=== PATIENT | female | born 1950 | race Caucasian/White ===

== ENCOUNTER 2018-01-01 11:22 | Inpatient (IN) | payer OTHER, MEDICAID ==
[~2018-01-01] VITALS: Ht 157.5 cm; Wt 93.9 kg
[2018-01-01] MEDS ORDERED: GABA-533 PO (11:48)
[2018-01-01] MEDS ORDERED: CLON-570 PO (11:48)
[2018-01-01] MEDS ORDERED: LAMO25 PO (11:48)
[2018-01-01] MEDS ORDERED: OMEP20 PO (11:48)
[2018-01-01] MEDS ORDERED: LORA10TA7 PO (11:48)
[2018-01-01] MEDS ORDERED: HYD50 PO (11:48)
[2018-01-01] MEDS ORDERED: FLUO-191 PO (11:48)
[2018-01-01] MEDS ORDERED: ATOR40TA28 PO (11:51)
[2018-01-01] MEDS ORDERED: LORA1TAB3 PO (11:51)
[2018-01-01] MEDS ORDERED: HYDR-308 PO (11:51)
[2018-01-01 12:17] LABS: BASOPHILS % (AUTO) 0.9 % (0.0-2.0); EOSINOPHILS % (AUTO) 3.1 % (1.0-6.0); HEMATOCRIT 41.3 % (36-46); HEMOGLOBIN 14.1 g/dL (12.0-16.0); LYMPHOCYTES % (AUTO) 27.7 % (22.0-44.0); MEAN CORPUSCULAR HEMOGLOBIN 28.8 pg (26.0-34.0); MEAN CORPUSCULAR HGB CONC 34.2 G/dL (31.0-37.0); MEAN CORPUSCULAR VOLUME 84 fL (80-100); MONOCYTES # (AUTO) 0.7 K/uL (0.1-1.0); MONOCYTES % (AUTO) 9.4 % (2.0-9.0); NEUTROPHILS # (AUTO) 4.3 K/uL (1.8-7.7); NEUTROPHILS % (AUTO) 58.9 % (40.0-70.0); PLATELET COUNT (AUTO) 265 K/uL (150-450); RED CELL DISTRIBUTION WIDTH 14.6 % (11.5-14.5)
[2018-01-01 12:25] LABS: ANION GAP 2 mmol/L (8-16); CALCIUM, TOTAL 8.3 mg/dL (8.8-10.5); CARBON DIOXIDE 30 mmol/L (22-29); CHLORIDE 105 mmol/L (98-107); CREATININE 0.81 mg/dL (0.60-1.30); GLOMERULAR FILTR. RATE CALC > 60 mL/min (>60); GLUCOSE,RANDOM 89 mg/dL (70-110); POTASSIUM 4.2 mmol/L (3.5-5.1); SODIUM SERUM 137 mmol/L (136-145); UREA NITROGEN, BLOOD 14 mg/dL (7-18)
[2018-01-01 12:30] LABS: ALANINE AMINOTRANSFERASE 16 U/L (12-78); ALKALINE PHOSPHATASE 104 U/L (46-116); ASPARTATE AMINOTRANSFERASE 14 U/L (15-37); BILIRUBIN,TOTAL 0.3 mg/dL (0.1-1.0); TOTAL PROTEIN, SERUM 6.9 g/dL (6.4-8.2)
[2018-01-01 12:50] LABS: APPEARANCE,URINE CLEAR (CLEAR); BILIRUBIN,URINE NEGATIVE (NEGATIVE); GLUCOSE, URINE (UA) NEGATIVE (NEGATIVE); KETONES,URINE NEGATIVE (NEGATIVE); LEUKOCYTE ESTERASE ,URINE NEGATIVE (NEGATIVE); NITRATE,URINE NEGATIVE (NEGATIVE); OCCULT BLOOD,URINE NEGATIVE (NEGATIVE); PH,URINE 6.5 (5.0-8.0); PROTEIN,URINE NEGATIVE (NEGATIVE); UROBILINOGEN,URINE 0.2 mg/dL (<=1.0)
[2018-01-01 13:04] LABS: AMPHET/METH SCREEN,URINE NEGATIVE (NEGATIVE); BARBITURATE SCREEN, URINE NEGATIVE (NEGATIVE); BENZODIAZEPINES SCREEN,URINE NEGATIVE (NEGATIVE); CANNABINOID SCREEN,URINE NEGATIVE (NEGATIVE); COCAINE SCREEN,URINE NEGATIVE (NEGATIVE); METHADONE SCREEN, URINE NEGATIVE (NEGATIVE); OPIATE SCREEN,URINE NEGATIVE (NEGATIVE); PHENCYCLIDINE SCREEN,URINE NEGATIVE (NEGATIVE)
[2018-01-01] MEDS ORDERED: LORazepam 2 MG TABLET PO ONE (13:30)
[2018-01-01] MEDS ORDERED: HALOPERIDOL 5 MG TABLET PO ONE (13:30)
[2018-01-01] MEDS ORDERED: HALOPERIDOL 5 MG TABLET PO PRN (15:15)
[2018-01-01] MEDS ORDERED: LORazepam 2 MG TABLET PO PRN (15:15)
[2018-01-01] MEDS ORDERED: ZOLPIDEM TARTRATE 10 MG TABLET PO PRN (15:15)
[2018-01-01 16:05] LABS: CHOL/HDL RATIO 4.2 (3.9-5.7); CHOLESTEROL 194 mg/dL (131-200); HDL CHOLESTEROL 46 mg/dL (40-60); LDL CHOL (CALC.) 116 mg/dL (0-130); TRIGLYCERIDES 160 mg/dL (15-150)
[2018-01-01 17:13] VITALS: BP 124/87
[2018-01-01] MEDS ORDERED: PNEUMOCOCCAL VACCINE POLYVALENT 0.5 ML VIAL [PPSV23] IM ONE (17:45)
[2018-01-02 06:26] VITALS: BP 100/75
[2018-01-02 08:42] VITALS: BP 129/75
[2018-01-02] MEDS: OMEPRAZOLE 20 MG CAPSULE PO SCH (09:09)
[2018-01-02] MEDS: ATORVASTATIN CALCIUM 40 MG TABLET PO SCH (09:09)
[2018-01-02] MEDS: GABAPENTIN 400 MG CAPSULE PO SCH ×2 (10:55→16:06)
[2018-01-02] MEDS: LamoTRIgine 25 MG TABLET PO SCH (10:55)
[2018-01-02] MEDS: FLUoxetine HCL 20 MG CAPSULE PO SCH (10:55)
[2018-01-02] MEDS ORDERED: HALOPERIDOL 5 MG TABLET PO PRN (11:15)
[2018-01-02] MEDS ORDERED: IBUPROFEN 400 MG TABLET PO PRN (13:45)
[2018-01-02] MEDS: LORazepam 2 MG TABLET PO PRN (16:06)
[2018-01-02 16:29] VITALS: BP 117/69
[2018-01-02] MEDS ORDERED: CloNIDine HCL 0.1 MG TABLET PO SCH (17:00)
[2018-01-02] MEDS: RisperiDONE 1 MG TABLET PO SCH (20:17)
[2018-01-03] MEDS: LORazepam 2 MG TABLET PO PRN (00:36)
[2018-01-03] MEDS: ZOLPIDEM TARTRATE 10 MG TABLET PO PRN ×2 (00:36→23:43)
[2018-01-03 05:18] VITALS: BP 112/71
[2018-01-03 08:00] VITALS: BP 108/69
[2018-01-03 08:10] LABS: EOSINOPHILS % (AUTO) 3.9 % (1.0-6.0); HEMATOCRIT 40.6 % (36-46); HEMOGLOBIN 13.9 g/dL (12.0-16.0); LYMPHOCYTES % (AUTO) 32.6 % (22.0-44.0); MEAN CORPUSCULAR HEMOGLOBIN 28.9 pg (26.0-34.0); MEAN CORPUSCULAR HGB CONC 34.2 G/dL (31.0-37.0); MEAN CORPUSCULAR VOLUME 85 fL (80-100); MONOCYTES # (AUTO) 0.6 K/uL (0.1-1.0); MONOCYTES % (AUTO) 8.8 % (2.0-9.0); NEUTROPHILS # (AUTO) 3.4 K/uL (1.8-7.7); NEUTROPHILS % (AUTO) 53.7 % (40.0-70.0); PLATELET COUNT (AUTO) 245 K/uL (150-450); RED CELL DISTRIBUTION WIDTH 14.6 % (11.5-14.5)
[2018-01-03 08:24] LABS: ALANINE AMINOTRANSFERASE 15 U/L (12-78); ALBUMIN 2.7 g/dL (3.4-5.0); ALKALINE PHOSPHATASE 96 U/L (46-116); ANION GAP 7 mmol/L (8-16); ASPARTATE AMINOTRANSFERASE 14 U/L (15-37); BILIRUBIN,TOTAL 0.3 mg/dL (0.1-1.0); CALCIUM, TOTAL 8.2 mg/dL (8.8-10.5); CARBON DIOXIDE 27 mmol/L (22-29); CHLORIDE 105 mmol/L (98-107); CREATININE 0.85 mg/dL (0.60-1.30); GLOMERULAR FILTR. RATE CALC > 60 mL/min (>60); GLUCOSE,RANDOM 82 mg/dL (70-110); POTASSIUM 4.2 mmol/L (3.5-5.1); SODIUM SERUM 139 mmol/L (136-145); TOTAL PROTEIN, SERUM 6.4 g/dL (6.4-8.2); UREA NITROGEN, BLOOD 15 mg/dL (7-18)
[2018-01-03] MEDS: GABAPENTIN 400 MG CAPSULE PO SCH ×2 (08:43→16:39)
[2018-01-03] MEDS: ATORVASTATIN CALCIUM 40 MG TABLET PO SCH (08:43)
[2018-01-03] MEDS: LORATADINE 10 MG TABLET PO SCH (08:43)
[2018-01-03] MEDS: FLUoxetine HCL 20 MG CAPSULE PO SCH (08:43)
[2018-01-03] MEDS: LamoTRIgine 25 MG TABLET PO SCH (08:43)
[2018-01-03] MEDS: OMEPRAZOLE 20 MG CAPSULE PO SCH ×2 (08:43→09:00)
[2018-01-03] MEDS ORDERED: ATORVASTATIN CALCIUM 40 MG TABLET PO SCH (09:00)
[2018-01-03] MEDS: LORazepam 1 MG TABLET PO PRN ×2 (16:24→23:43)
[2018-01-03 16:30] VITALS: BP 123/80
[2018-01-03] MEDS: RisperiDONE 1 MG TABLET PO SCH (20:37)
[2018-01-04] VITALS: BP 107/77
[2018-01-04] MEDS: FLUoxetine HCL 20 MG CAPSULE PO SCH (08:24)
[2018-01-04] MEDS: ATORVASTATIN CALCIUM 40 MG TABLET PO SCH (08:24)
[2018-01-04] MEDS: OMEPRAZOLE 20 MG CAPSULE PO SCH (08:24)
[2018-01-04] MEDS: LORATADINE 10 MG TABLET PO SCH (08:24)
[2018-01-04] MEDS: GABAPENTIN 400 MG CAPSULE PO SCH ×2 (08:24→16:37)
[2018-01-04] MEDS: LamoTRIgine 25 MG TABLET PO SCH (08:24)
[2018-01-04 08:30] VITALS: BP 121/83
[2018-01-04] MEDS: LORazepam 1 MG TABLET PO PRN (16:08)
[2018-01-04 16:12] VITALS: BP 122/71
[2018-01-04] MEDS: RisperiDONE 1 MG TABLET PO SCH (20:33)
[2018-01-04] MEDS: ZOLPIDEM TARTRATE 10 MG TABLET PO PRN (21:32)
[2018-01-05 01:09] VITALS: BP 118/75
[2018-01-05] MEDS: LORazepam 1 MG TABLET PO PRN ×2 (01:14→16:20)
[2018-01-05 08:05] VITALS: BP 105/74
[2018-01-05] MEDS: FLUoxetine HCL 20 MG CAPSULE PO SCH (08:23)
[2018-01-05] MEDS: ATORVASTATIN CALCIUM 40 MG TABLET PO SCH (08:23)
[2018-01-05] MEDS: LamoTRIgine 25 MG TABLET PO SCH (08:24)
[2018-01-05] MEDS: GABAPENTIN 400 MG CAPSULE PO SCH ×2 (08:24→16:37)
[2018-01-05] MEDS: LORATADINE 10 MG TABLET PO SCH (08:24)
[2018-01-05] MEDS: OMEPRAZOLE 20 MG CAPSULE PO SCH (08:24)
[2018-01-05 16:20] VITALS: BP 133/81
[2018-01-05] MEDS: RisperiDONE 1 MG TABLET PO SCH (20:34)
[2018-01-05] MEDS: ZOLPIDEM TARTRATE 5 MG TABLET PO PRN (20:54)
[2018-01-06 04:00] VITALS: BP 114/61
[2018-01-06] MEDS: GABAPENTIN 400 MG CAPSULE PO SCH ×2 (08:17→16:35)
[2018-01-06] MEDS: LamoTRIgine 25 MG TABLET PO SCH (08:17)
[2018-01-06] MEDS: ATORVASTATIN CALCIUM 40 MG TABLET PO SCH (08:17)
[2018-01-06] MEDS: LORATADINE 10 MG TABLET PO SCH (08:17)
[2018-01-06] MEDS: FLUoxetine HCL 20 MG CAPSULE PO SCH (08:17)
[2018-01-06] MEDS: OMEPRAZOLE 20 MG CAPSULE PO SCH (08:17)
[2018-01-06 08:37] VITALS: BP 106/68
[2018-01-06] MEDS ORDERED: FLUoxetine HCL 20 MG CAPSULE PO ONE (12:30)
[2018-01-06 16:15] VITALS: BP 123/72
[2018-01-06] MEDS: LORazepam 1 MG TABLET PO PRN (16:20)
[2018-01-06] MEDS: RisperiDONE 1 MG TABLET PO SCH (20:35)
[2018-01-06] MEDS: ZOLPIDEM TARTRATE 5 MG TABLET PO PRN (21:10)
[2018-01-07 07:20] VITALS: BP 112/70
[2018-01-07] MEDS: ATORVASTATIN CALCIUM 40 MG TABLET PO SCH (08:14)
[2018-01-07] MEDS: FLUoxetine HCL 20 MG CAPSULE PO SCH (08:14)
[2018-01-07] MEDS: GABAPENTIN 400 MG CAPSULE PO SCH ×2 (08:14→16:21)
[2018-01-07] MEDS: OMEPRAZOLE 20 MG CAPSULE PO SCH (08:14)
[2018-01-07] MEDS: LamoTRIgine 25 MG TABLET PO SCH (08:14)
[2018-01-07] MEDS: LORATADINE 10 MG TABLET PO SCH (08:14)
[2018-01-07 08:35] VITALS: BP 104/72
[2018-01-07 16:12] VITALS: BP 118/77
[2018-01-07] MEDS: LORazepam 1 MG TABLET PO PRN (16:21)
[2018-01-07] MEDS: RisperiDONE 1 MG TABLET PO SCH (20:10)
[2018-01-07] MEDS: NYSTATIN 15 GM POWDER BOTTLE TP SCH (21:19)
[2018-01-07] MEDS: ZOLPIDEM TARTRATE 5 MG TABLET PO PRN (21:19)
[2018-01-08 06:10] VITALS: BP 116/80
[2018-01-08] MEDS: OMEPRAZOLE 20 MG CAPSULE PO SCH (08:24)
[2018-01-08] MEDS: LORATADINE 10 MG TABLET PO SCH (08:24)
[2018-01-08] MEDS: LamoTRIgine 25 MG TABLET PO SCH (08:24)
[2018-01-08] MEDS: GABAPENTIN 400 MG CAPSULE PO SCH ×2 (08:24→16:33)
[2018-01-08] MEDS: FLUoxetine HCL 20 MG CAPSULE PO SCH (08:24)
[2018-01-08] MEDS: ATORVASTATIN CALCIUM 40 MG TABLET PO SCH (08:24)
[2018-01-08] MEDS: NYSTATIN 15 GM POWDER BOTTLE TP SCH ×2 (08:25→16:33)
[2018-01-08 08:30] VITALS: BP 103/66
[2018-01-08 16:09] VITALS: BP 111/65
[2018-01-08] MEDS: LORazepam 1 MG TABLET PO PRN ×2 (16:46→23:38)
[2018-01-08] MEDS: RisperiDONE 1 MG TABLET PO SCH (20:28)
[2018-01-08 23:35] VITALS: BP 131/74
[2018-01-08] MEDS: ZOLPIDEM TARTRATE 5 MG TABLET PO PRN (23:38)
[2018-01-09] MEDS: ATORVASTATIN CALCIUM 40 MG TABLET PO SCH (08:11)
[2018-01-09] MEDS: GABAPENTIN 400 MG CAPSULE PO SCH ×2 (08:11→16:40)
[2018-01-09] MEDS: LamoTRIgine 25 MG TABLET PO SCH (08:11)
[2018-01-09] MEDS: LORATADINE 10 MG TABLET PO SCH (08:11)
[2018-01-09] MEDS: OMEPRAZOLE 20 MG CAPSULE PO SCH (08:11)
[2018-01-09] MEDS: FLUoxetine HCL 20 MG CAPSULE PO SCH (08:11)
[2018-01-09] MEDS: NYSTATIN 15 GM POWDER BOTTLE TP SCH ×2 (08:12→16:41)
[2018-01-09 08:24] VITALS: BP 115/75
[2018-01-09] MEDS ORDERED: MAGNESIUM HYDROXIDE SUSPENSION 30 ML UDCUP PO PRN (11:15)
[2018-01-09 16:12] VITALS: BP 110/69
[2018-01-09] MEDS: LORazepam 1 MG TABLET PO PRN (16:18)
[2018-01-09] MEDS: RisperiDONE 1 MG TABLET PO SCH (20:34)
[2018-01-09] MEDS: ZOLPIDEM TARTRATE 5 MG TABLET PO PRN (21:18)
[2018-01-10 06:31] VITALS: BP 103/61
[2018-01-10] MEDS: OMEPRAZOLE 20 MG CAPSULE PO SCH (08:14)
[2018-01-10] MEDS: ATORVASTATIN CALCIUM 40 MG TABLET PO SCH (08:14)
[2018-01-10] MEDS: GABAPENTIN 400 MG CAPSULE PO SCH ×2 (08:14→16:39)
[2018-01-10] MEDS: FLUoxetine HCL 20 MG CAPSULE PO SCH (08:14)
[2018-01-10] MEDS: LORATADINE 10 MG TABLET PO SCH (08:14)
[2018-01-10] MEDS: LamoTRIgine 25 MG TABLET PO SCH (08:15)
[2018-01-10] MEDS: NYSTATIN 15 GM POWDER BOTTLE TP SCH ×2 (08:19→16:40)
[2018-01-10 08:31] VITALS: BP 121/78
[2018-01-10 16:06] VITALS: BP 114/85
[2018-01-10] MEDS: LORazepam 1 MG TABLET PO PRN (17:05)
[2018-01-10] MEDS: RisperiDONE 1 MG TABLET PO SCH (20:41)
[2018-01-10] MEDS: ZOLPIDEM TARTRATE 5 MG TABLET PO PRN (21:18)
[2018-01-11 00:10] VITALS: BP 138/81
[2018-01-11] MEDS: LamoTRIgine 25 MG TABLET PO SCH (08:19)
[2018-01-11] MEDS: FLUoxetine HCL 20 MG CAPSULE PO SCH (08:19)
[2018-01-11] MEDS: LORATADINE 10 MG TABLET PO SCH (08:19)
[2018-01-11] MEDS: ATORVASTATIN CALCIUM 40 MG TABLET PO SCH (08:19)
[2018-01-11] MEDS: OMEPRAZOLE 20 MG CAPSULE PO SCH (08:19)
[2018-01-11] MEDS: GABAPENTIN 400 MG CAPSULE PO SCH ×2 (08:19→16:41)
[2018-01-11] MEDS: NYSTATIN 15 GM POWDER BOTTLE TP SCH ×2 (08:20→16:41)
[2018-01-11 08:35] VITALS: BP 122/70
[2018-01-11] MEDS: LORazepam 1 MG TABLET PO PRN ×2 (12:03→19:56)
[2018-01-11 16:07] VITALS: BP 122/78
[2018-01-11] MEDS: RisperiDONE 1 MG TABLET PO SCH (20:37)
[2018-01-11] MEDS: ZOLPIDEM TARTRATE 5 MG TABLET PO PRN (22:36)
[2018-01-12 06:41] VITALS: BP 103/69
[2018-01-12 08:06] VITALS: BP 116/71
[2018-01-12] MEDS: GABAPENTIN 400 MG CAPSULE PO SCH ×2 (08:40→16:52)
[2018-01-12] MEDS: LamoTRIgine 25 MG TABLET PO SCH (08:40)
[2018-01-12] MEDS: ATORVASTATIN CALCIUM 40 MG TABLET PO SCH (08:40)
[2018-01-12] MEDS: LORATADINE 10 MG TABLET PO SCH (08:40)
[2018-01-12] MEDS: OMEPRAZOLE 20 MG CAPSULE PO SCH (08:40)
[2018-01-12] MEDS: FLUoxetine HCL 20 MG CAPSULE PO SCH (08:40)
[2018-01-12] MEDS: NYSTATIN 15 GM POWDER BOTTLE TP SCH ×2 (08:41→16:52)
[2018-01-12] MEDS: LORazepam 1 MG TABLET PO PRN ×2 (10:58→17:50)
[2018-01-12 16:05] VITALS: BP 122/78
[2018-01-12] MEDS: RisperiDONE 1 MG TABLET PO SCH (20:29)
[2018-01-12] MEDS: ZOLPIDEM TARTRATE 5 MG TABLET PO PRN (20:41)
[2018-01-13 01:58] VITALS: BP 103/62
[2018-01-13 07:54] VITALS: BP 119/84
[2018-01-13] MEDS: GABAPENTIN 400 MG CAPSULE PO SCH ×2 (08:16→16:32)
[2018-01-13] MEDS: LamoTRIgine 25 MG TABLET PO SCH (08:16)
[2018-01-13] MEDS: FLUoxetine HCL 20 MG CAPSULE PO SCH (08:17)
[2018-01-13] MEDS: LORATADINE 10 MG TABLET PO SCH (08:17)
[2018-01-13] MEDS: ATORVASTATIN CALCIUM 40 MG TABLET PO SCH (08:17)
[2018-01-13] MEDS: OMEPRAZOLE 20 MG CAPSULE PO SCH (08:17)
[2018-01-13] MEDS: NYSTATIN 15 GM POWDER BOTTLE TP SCH ×2 (08:19→16:32)
[2018-01-13 09:08] VITALS: BP 119/84
[2018-01-13] MEDS: LORazepam 1 MG TABLET PO PRN (15:04)
[2018-01-13] MEDS ORDERED: RISP1TAB89 PO (15:45)
[2018-01-13 16:03] VITALS: BP 114/81
[2018-01-13] MEDS: RisperiDONE 1 MG TABLET PO SCH (20:30)
[2018-01-13] MEDS: ZOLPIDEM TARTRATE 5 MG TABLET PO PRN (21:09)
[2018-01-13] MEDS ORDERED: RISP1 PO (22:27)
[2018-01-13] MEDS ORDERED: FLUO-191 PO (22:27)
[2018-01-14 02:53] VITALS: BP 107/62
[2018-01-14] MEDS: FLUoxetine HCL 20 MG CAPSULE PO SCH (08:05)
[2018-01-14] MEDS: LamoTRIgine 25 MG TABLET PO SCH (08:05)
[2018-01-14] MEDS: LORATADINE 10 MG TABLET PO SCH (08:05)
[2018-01-14] MEDS: GABAPENTIN 400 MG CAPSULE PO SCH (08:05)
[2018-01-14] MEDS: OMEPRAZOLE 20 MG CAPSULE PO SCH (08:05)
[2018-01-14] MEDS: ATORVASTATIN CALCIUM 40 MG TABLET PO SCH (08:06)
[2018-01-14] MEDS: NYSTATIN 15 GM POWDER BOTTLE TP SCH (08:09)
[2018-01-14 08:27] VITALS: BP 122/83
[2018-01-14] MEDS: LORazepam 1 MG TABLET PO PRN (08:47)
[2018-01-14 09:56] LABS: APPEARANCE,URINE CLEAR (CLEAR); BILIRUBIN,URINE NEGATIVE (NEGATIVE); GLUCOSE, URINE (UA) NEGATIVE (NEGATIVE); KETONES,URINE NEGATIVE (NEGATIVE); LEUKOCYTE ESTERASE ,URINE SMALL (NEGATIVE); NITRATE,URINE NEGATIVE (NEGATIVE); OCCULT BLOOD,URINE TRACE (NEGATIVE); PH,URINE 5.5 (5.0-8.0); PROTEIN,URINE NEGATIVE (NEGATIVE); UROBILINOGEN,URINE 0.2 mg/dL (<=1.0)
[2018-01-14 10:00] LABS: AMPHET/METH SCREEN,URINE NEGATIVE (NEGATIVE); BARBITURATE SCREEN, URINE NEGATIVE (NEGATIVE); BENZODIAZEPINES SCREEN,URINE NEGATIVE (NEGATIVE); CANNABINOID SCREEN,URINE NEGATIVE (NEGATIVE); COCAINE SCREEN,URINE NEGATIVE (NEGATIVE); METHADONE SCREEN, URINE NEGATIVE (NEGATIVE); OPIATE SCREEN,URINE NEGATIVE (NEGATIVE)
[2018-01-14 10:02] LABS: PHENCYCLIDINE SCREEN,URINE NEGATIVE (NEGATIVE)
[2018-01-14 10:12] LABS: BACTERIA,URINE None Seen /HPF (None Seen)
[2018-01-14 10:13] LABS: SQUAMOUS EPITHELIAL CELL,UR Rare /LPF (None Seen)
== END 2018-01-14 12:00 | disposition home or self-care (01) | DRG 885 ==
LOC: EMS 11:24 → B2X 15:46
PROC: 3E0234Z Introduction of Serum, Toxoid and Vaccine into Muscle, Percutaneous Approach (ICD-10-PCS; principal; 2018-01-02)
DX: F25.1 Schizoaffective disorder, depressive type (principal); K21.9 Gastro-esophageal reflux disease without esophagitis; J30.9 Allergic rhinitis, unspecified; I10 Essential (primary) hypertension; G89.29 Other chronic pain; F60.9 Personality disorder, unspecified; E78.00 Pure hypercholesterolemia, unspecified; M54.5 Low back pain; B36.9 Superficial mycosis, unspecified; E78.5 Hyperlipidemia, unspecified; K59.00 Constipation, unspecified; Z59.9 Problem related to housing and economic circumstances, unspecified; Z79.899 Other long term (current) drug therapy; Z91.5 Personal history of self-harm; Z88.6 Allergy status to analgesic agent; Z88.8 Allergy status to other drugs, medicaments and biological substances; Z91.030 Bee allergy status; Z23 Encounter for immunization
CPT/HCPCS: 80307; 83036; 87086; 90471; 99285; G0480